=== PATIENT | female | born 1940 | race African-American/Black ===

== ENCOUNTER 2019-07-10 09:38 | Observation (INO) | payer MEDICARE, MEDICAID ==
--- NOTE | 2019-07-10 10:17 | ED ---
GI/ HPI - HPI Summary HPI Summary: This patient is a 79 year old female accompanied by her daughters presenting to [facility] with a chief complaint of left flank pain since last night around 0200. She reports nausea and vomiting as well as umbilical abdominal pain that she feels is secondary to the vomiting. She states what she was vomiting was sour. She rates her pain 9/10 in severity. She states she has not had any history of kidney stones in the past. She states walking and movement does affect her pain. She states she does not have numbness or tingling in her legs related to this problem. She denies blood in stool. Pt also denies any fever, chills, erythema of eyes, sore throat, CP, SOB, cough, dysuria, hematuria, myalgia, edema, rash, or dizziness. escalator attendant was used for this visit. - History of Current Complaint Chief Complaint: EDFlankPain Time Seen by Provider: 07/10/19 09:51 Stated Complaint: ABD PAIN/VOMITING PER PT DAUGHTER Hx Obtained From: Patient, Family/Incendiaries Supervisor, Kiln Cleaner Onset/Duration: Started Hours Ago Timing: Constant Pain Intensity: 9 Location of Pain: Flank, Umbilical - Allergy/Home Medications Allergies/Adverse Reactions: Allergies Allergy/AdvReac Type Severity Reaction Status Date / Time No Known Allergies Allergy Verified 07/10/19 09:44 Home Medications: Home Medications Aspirin 81 mg CHEW TAB* [Aspirin Low Dose TAB*] 81 mg PO DAILY 07/10/19 [ History Confirmed 07/10/19] Ezetimibe TAB* [Zetia TAB*] 10 mg PO DAILY 07/10/19 [History Confirmed 07/10/19] Insulin Degludec/Liraglutide [Xultophy 100/3.6 100-3.6 Unit-mg/ml] 50 units SUBCUT DAILY 07/10/19 [History Confirmed 07/10/19] Insulin Lispro [Humalog Kwikpen] 15 unit SUBCUT TID 07/10/19 [History Confirmed 07/10/19] Lisinopril 40 mg PO DAILY 07/10/19 [History Confirmed 07/10/19] Rosuvastatin (NF) [Crestor (NF)] 20 mg PO BEDTIME 07/10/19 [History Confirmed ] PMH/Surg Hx/FS Hx/Imm Hx Endocrine/Hematology History: Reports: Hx Diabetes - type 2 Denies: Hx Thyroid Disease Cardiovascular History: Reports: Hx Angina, Hx Hypercholesterolemia, Hx Hypertension - W/MEDS, Other Cardiovascular Problems/Disorders - HEART MURMUR, heart a little big Denies: Hx Coronary Artery Disease, Hx Myocardial Infarction, Hx Pacemaker/ ICD, Hx Valvular Heart Disease Respiratory History: Denies: Hx Asthma, Hx Chronic Obstructive Pulmonary Disease (COPD) GI History: Denies: Hx Ulcer History: Denies: Hx Renal Disease Musculoskeletal History: Denies: Hx Rheumatoid Arthritis, Hx Osteoporosis Sensory History: Reports: Hx Contacts or Glasses Denies: Hx Hearing Aid Opthamlomology History: Reports: Hx Contacts or Glasses Neurological History: Denies: Hx Dementia, Hx Seizures Psychiatric History: Denies: Hx Panic Disorder - Cancer History Hx Chemotherapy: No Hx Radiation Therapy: No - Surgical History Surgery Procedure, Year, and Place: HYSTERECTOMY. TUBAL LIGATION. CATARACT SURGERY Hx Anesthesia Reactions: No Infectious Disease History: No Infectious Disease History: Denies: Hx Clostridium Difficile, Hx Hepatitis, Hx Human Immunodeficiency Virus (HIV), Hx of Known/Suspected MRSA, Hx Shingles, Hx Tuberculosis, Traveled Outside the [place] in Last 30 Days - Social History Alcohol Use: None Substance Use Type: Reports: None Smoking Status (MU): Never Smoked Tobacco Review of Systems Negative: Fever, Chills Negative: Erythema Negative: Sore Throat Negative: Chest Pain Negative: Shortness Of Breath, Cough Positive: Abdominal Pain, Vomiting, Nausea, Other - Neg: Hematochezia Positive: flank pain. Negative: dysuria, hematuria Negative: Myalgia, Edema Negative: Rash Neurological: Other - Neg: Dizziness Negative: Paresthesia, Numbness All Other Systems Reviewed And Are Negative: No Physical Exam - Summary Physical Exam Summary: Constitutional: Well-developed, Well-nourished, Alert. (-) Distressed Skin: Warm, Dry HENT: Normocephalic; Atraumatic Eyes: Conjunctiva normal Neck: Musculoskeletal ROM normal neck. (-) JVD, (-) Stridor, (-) Tracheal deviation Cardio: Rhythm regular, rate normal, Heart sounds normal; Intact distal pulses; The pedal pulses are 2+ and symmetric. Radial pulses are 2+ and symmetric. (-) Murmur Pulmonary/Chest wall: Effort normal. (-) Respiratory distress, (-) Wheezes, (-) Rales Abd: Soft, LLQ and left flank tenderness, (-) Distension, (-) Guarding, (-) Rebound Musculoskeletal: (-) Edema Lymph: (-) Cervical adenopathy Neuro: Alert, Oriented x3 Psych: Mood and affect Normal Triage Information Reviewed: Yes Vital Signs On Initial Exam: Initial Vitals Temp Pulse Resp BP Pulse Ox 98.2 F 79 18 199/103 97 07/10/19 09:39 07/10/19 09:39 07/10/19 09:39 07/10/19 09:39 07/10/19 09:39 Vital Signs Reviewed: Yes Procedures - Sedation Patient Received Moderate/Deep Sedation with Procedure: No Diagnostics - Vital Signs Vital Signs Temp Pulse Resp BP Pulse Ox 07/10/19 09:39 98.2 F 79 18 199/103 97 - Laboratory Result Diagrams: 07/10/19 10:18 07/10/19 10:18 Lab Statement: Any lab studies that have been ordered have been reviewed, and results considered in the medical decision making process. - CT Abd/Pel CT Interpretation Completed By: Radiologist Summary of CT Findings: Colonic diverticulosis without findings of accute diverticulitis. Infracecal medially extending appendix measuring up to 0.8 cm diameter while mildly prominent and is without visualized inflammatory change. Helpatosteatosis. Consider ultrasound of urinary bladder to assess for potential mural lesion along the midline anterior wall. ED Provider has reviewed this report. CTA Chest CT Interpretation Completed By: Radiologist Summary of CT Findings: No pulmonary embolus. No aortic dissection or aneurysmal dilatation. ED Provider has reviewed this report. - EKG 1019 Cardiac Rate: NL - 74 BPM EKG Rhythm: Sinus Rhythm Summary of EKG Findings: Mild [address] elevations V1-V3. TWI in V4-V6. No STEMI. ED Physician has reviewed and interpreted this report. 1600 Cardiac Rate: NL - 61 BPM EKG Comparison: No Significant Change - From 1019 Summary of EKG Findings: Mild [address] elevations V1-V3. TWI in V4-V6. No STEMI. ED Physician has reviewed and interpreted this report. Re-Evaluation - Re-Evaluation First Eval Re-Evaluation Time: 15:59 Change: Improved Comment: Pain has resolved. GIGU Course/Dx - Course Course Of Treatment: This patient is a 79 year old female accompanied by her daughters presenting to [facility] with a chief complaint of left flank pain since last night around 0200. CT Abd/Pel reveals Colonic diverticulosis without findings of accute diverticulitis. Infracecal medially extending appendix measuring up to 0.8 cm diameter while mildly prominent and is without visualized inflammatory change. Hepatosteatosis. Consider ultrasound of urinary bladder to assess for potential mural lesion along the midline anterior wall. Labs were unremarkable except Absolute Neuts 8.4 H, Absolute Lymphs 0.9 L, Sodium 134 L, Chloride 99L, Glucose 327 H, Troponin 0.03H both tests, Ur Specific [place] ?1.060 H, Urine Ketones 1+A, Ur Leukocyte Esterase Trace A, Ur Squamous Epith Cells Present A, Urine Glucose 3+ A. Dr. Juárez, Cardiology, stated he would see the patient in the hospital tomorrow morning. Dr. Salgado, Hosptialist, accepted the patient for admission. A plan for admission was discussed with the patient and she was agreeable with this plan. - Diagnoses Provider Diagnoses: Acute electrocardiogram changes, Flank pain - Physician Notifications Discussed Care Of Patient With: Zoran Juárez - Cardiology Time Discussed With Above Provider: 16:05 - Will see in the morning Instructed by Provider To: Admit As Inpatient Discharge ED - Sign-Out/Discharge Documenting (check all that apply): Patient Departure - Admission - Discharge Plan Condition: Stable Disposition: ADMITTED TO [facility] Patient Education Materials: Flank Pain (ED) - Attestation Statements Document Initiated by Scribe: Yes Documenting Scribe: Zhen Ryder Provider For Whom Ernestoibe is Documenting (Include Credential): Angelo Wynn MD Scribe Attestation: IZhen, scribed for Angelo Wynn MD on 07/10/19 at 1637. Status of Scribe Document: Ready
--- OUTSIDE RECORDS SUMMARY | 2019-07-10 10:24 | XMS REPORT | Continuity of Care Document ---
:1940 External Reference #:[id number] Author Name Sung Sierra MD (transmitted by agent of provider Hailey Mcbride) Address [address] [place] [id number] Care Team Providers Name Role Phone Chanell Perez MD - Legal Medicine Care Team Information Multiple Knife Edge Trimmer Operator [phone] Misti Aguilar MD - Surgery Care Team Information Multiple Knife Edge Trimmer Operator [phone] Mukul Spivey MD - Care Team Information Multiple Knife Edge Trimmer Operator [phone] Ophthalmology Opal Galeas MD - Orthopaedic Care Team Information Multiple Knife Edge Trimmer Operator Surgery Lina Holly M.D. - Family Medicine Care Team Information Multiple Knife Edge Trimmer Operator Problems Active Problems Provider Date Type 2 diabetes mellitus Arnaldo Dorantes M.D. Onset: 06/30/2011 Benign essential hypertension Arnaldo Dorantes M.D. Onset: 08/31/2011 Hyperlipidemia Arnaldo Dorantes M.D. Onset: 08/31/2011 Allergic rhinitis due to pollen Arnaldo Dorantes M.D. Onset: 01/18/2012 Type II diabetes mellitus uncontrolled Arnaldo Dorantes M.D. 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 Onset: 11/01/2012 Pneumonia Arnaldo Dorantes M.D. Onset: 12/26/2012 Allergic rhinitis Arnaldo Dorantes M.D. Onset: 12/26/2012 Chest pain Arnaldo Dorantes M.D. Onset: 04/11/2013 Age-related osteoporosis without current Arnaldo Dorantes M.D. Onset: 2016 pathological fracture Gastroesophageal reflux disease Arnaldo Dorantes M.D. Onset: 10/14/2016 Low back pain Arnaldo Dorantes M.D. Onset: 07/01/2017 Cervical disc disorder Arnaldo Dorantes M.D. Onset: 11/09/2017 Mixed hyperlipidemia Arnaldo Dorantes M.D. Onset: 06/23/2018 Vitamin D deficiency Arnaldo Dorantes M.D. Onset: 06/23/2018 Social History Type Date Description Comments Sex Unknown Tobacco Use Start: Unknown Never Smoked Cigarettes ETOH Use Never used alcohol Tobacco Use Start: Unknown Patient has never smoked Recreational Drug Use Denies Drug Use Smoking Status Reviewed: 07/04/19 Patient has never smoked Exercise Type/Frequency Exercises regularly treadmill at the gym 3x/week Allergies, Adverse Reactions, Alerts Active Allergies Reaction Severity Comments Date seasonal 12/07/2011 Invokana vomiting and dizziness 05/06/2017 Medications Active Medications SIG Qnty Indications Ordering Date Provider Xultophy 50 units once 15ml E11.65 Almaraz [facility], 100-3.6Unit-mg/ML daily, mdd 50 MD Grossman Solution Pen-Inject Freestyle [place] Lite 3 times times 100units E11.65 Almaraz Coch, daily dx:e11.9 MD Grossman W/Device Kit Freestyle Lite Test test blood sugar 3 100units E11.65 Almaraz Rigo, Strips times daily and as MD Grossman needed Lancet Device use 3 times daily 100units E11.65 Almaraz Coch, Misc MD Grossman Hydrochlorothiazide 1 by mouth every 90tabs R60.0 Almaraz Rigo, 25mg day MD Grossman Tablets Ezetimibe take 10mg by mouth 90tabs I10 Sung Sierra, 10mg Tablets daily MD Grossman Ergocalciferol one capsule every 14caps E55.9 Almaraz Coch, [id number] week for 3 months MD Grossman Capsules Onetouch Delica Lancing check up to three 1units E11.65 Almaraz Coch, 08/24 Dev times daily. brand 9 [facility] may be adjusted to fit insurance Amlodipine Besylate Take 1 Tablet By 30tabs I10 Lina Holly, 10mg Mouth Every Day 8 Tablets Shingrix 0.5 milliliters 2units E11 [place] [facility] 50mcg/0.5ML intramuscular now Sohailika, 8 Suspension Rec and 2-3 months M.D. later repeat Rosuvastatin Calcium 1 by mouth every 90tabs [place] [facility] 20mg day bed time Pachika, 8 Tablets M.D. Humalog Kwikpen inject 15 units 15ml E11. Sung Sierra, 100Unit/ML under the skin MD Farmer Solution Pen-Inject after each meal, MDD 50 Metoprolol Succinate ER 1 by mouth every 30tabs Z23 Linafuentes ArredondoHolly, 50mg day . 7 Tablets ER 24HR Blood Pressure Monitor check bp daily 1units Z23 [place] Auto Inflate dx:i10 Jayna, 7 [facility] Chuyita Freestyle Insulinx Blood as directed. 1units Gina Glucose Monitoring Chuyita Ricardo 6 System W/Device Kit Lisinopril 1 by mouth every 90tabs Z23 Rosie 40mg Tablets day Chuyita Link 6 Onetouch Ultra Blue test up to four 200units Gina Strips times a day or as Chuyita Ricardo 5 directed Onetouch Ultra 2 check blood sugar 1units Gina W/Device Kit 2 times daily and Chuyita Ricardo 5 prn dx 250.02 Onetouch Ultra Blue test up to two 200units E11. Lina Holly, Strips times a day or as MD Cummings directed dx: e11.65 date of last exam : 01-24-2019 Onetouch Delica Lancets test two times 200units Lina Holly, Fine 30G daily or as needed MD Cummings 30G [facility] dx code: E11.65 BD Pen use 4 times a day 120units E11 Lina Holly, Needle/Mini/Ultrafine/31 5 G X 3/16" 31G X 5 mm Misc BD Pen Needle Mini Use as Directed 100units Ryan Treadwell 31GX3/16"__5mm With Emiliano LangleyDCheri,FACP BD Pen three times a day 100units E11.65 Gina Needle/Mini/Ultrafine/31 Chuyita Ricardo 3 G X 3/16" 31G X 5 mm Misc Ibuprofen as needed Unknown 200mg Capsules 0 History Medications Hydrochlorothiazide 1 by mouth 30caps R60.0 Lina Holly, 01/24/2019 - 12.5mg every day as MD 07/04/2019 Capsules needed for swelling Immunizations CPT Code Status Date Vaccine Reaction Lot # [id number] Given 06/23/2018 Fluzone High Dose No immediate reaction [id number] noted. 13388 Given 09/30/2016 Pneumococcal Conjugate no immediate reaction [id number] Vaccine 13 Valent For noted .. hh Intramuscular Use 21971 Given 05/17/2015 Influenza Virus Vaccine, [id number] Quadrivalent, Split, Preservative Free 98551 Given 05/17/2015 Influenza Virus Vaccine, x7yr2 Quadrivalent, Split, Preservative Free 03083 Given 05/22/2013 Flu Vaccine Split Virus [id number] Preservative Free For Indiv 3Yr Older [id number] Given 06/08/2012 Fluvirin Im 3Yrs And Older [id number] 26451 Given 07/30/2010 Pneumonia Vaccine [id number] 08124 Given 07/30/2010 Influenza Virus 3Yrs & Over [id number] 41109 Given 05/17/2000 Influenza Virus Vaccine, x7yr2 Quadrivalent, Split, Preservative Free [id number] Refused 06/08/2012 Tdap - Tetanus/Diptheria/Acellular Pertussis Vital Signs Date Vital Result Comment 07/04/2019 1:38pm Height 62 inches 5'2" Weight 148.00 lb w/ shoes Heart Rate 59 /min BP Systolic Sitting 200 mmHg BP Diastolic Sitting 79 mmHg BMI (Body Mass Index) 27.1 kg/m2 01/24/2019 3:17pm Height 62 inches 5'2" Weight 146.38 lb Heart Rate 85 /min BP Systolic 138 mmHg BP Diastolic 82 mmHg Body Temperature 97.4 F O2 % BldC Oximetry 96 % BMI (Body Mass Index) 26.8 kg/m2 Results Description No Information Available Procedures Date Code Description Status 06/30/2017 169063579 Bone Mineral Density Test Completed 06/20/2016 823775953 Diabetic Retinal Eye Exam Completed 10/29/2015 43643026 Mammogram Completed 06/20/2015 054374618 Diabetic Retinal Eye Exam Completed 04/17/2014 381820928 Bone Mineral Density Test Completed 04/17/2014 83903877 Mammogram Completed 09/29/2012 686485525 Diabetic Retinal Eye Exam Completed 09/07/2011 18497686 Mammogram Completed 01/16/2011 33687150 Colonoscopy Completed 08/21/2010 14864950 Mammogram Completed Medical Devices Description No Information Available Encounters Type Date Location Provider Dx Diagnosis Office Visit 01/24/2019 [facility] Internal Lina Holly MD I10 Essential ( primary) 3:00p Medicine - Ccmob hypertension R60.0 Localized edema E11.65 Type 2 diabetes mellitus with hyperglycemia Assessments Date Code Description Provider 07/04/2019 E11.65 Type 2 diabetes mellitus with hyperglycemia Sung Sierra MD 07/04/2019 Z79.4 adjunct faculty for medical 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 (current) use of insulin Sung Sierra MD 07/04/2019 E78.5 Hyperlipidemia, unspecified Sung Sierra MD 07/04/2019 I10 Essential (primary) hypertension Sung Sierra MD 01/24/2019 I10 Essential (primary) hypertension Lina Holly MD 01/24/2019 R60.0 Localized edema Lina Holly MD 01/24/2019 E11.65 Type 2 diabetes mellitus with hyperglycemia Lina Holly MD Plan of Treatment Future Appointment(s):10/03/2019 1:20 pm - Sung Sierra MD at [facility]07/04/2019 - Sung Sierra MDE11.65 Type 2 diabetes mellitus with hyperglycemiaNew Medication:Xultophy 100-3.6 Unit-mg/ML - 50 units once daily, mdd 50Freestyle [place] Lite W/Device - 3 times times daily dx:e11.9Freestyle Lite Test - test blood sugar 3 times daily and as neededLancet Device - use 3 times dailyFollow up:SeptemberInstructions:1. Continue Xultophy 50 units every day. 2. Start Humalog 15-18 units with every meal. 3. Please check your blood glucose before every meal. 4. Check fasting blood tests prior to your appointment with Dr. Holly. 5. Return in 3 months for a follow-up visit.Z79.4 snf (current) use of sfsibopL28.5 Hyperlipidemia, [id number] Essential (primary) hypertension Functional Status Description No Information Available Mental Status Description No Information Available Referrals Description No Information Available
[2019-07-10 10:30] LABS: ABS Basophils 0.1 10^3/ul (0-0.2); ABS Lymphocytes 0.9 10^3/ul (1.0-4.8); ABS Monocytes 0.2 10^3/ul (0-0.8); ABS Neutrophils 8.4 10^3/ul (1.5-7.7); Hematocrit 42 % (35-47); Lymphocyte % 9.5 %; Mean Corpuscular HGB Conc 33 g/dL (31-36); Mean Corpuscular Hemoglobin 29 pg (27-31); Mean Corpuscular Volume 87 fL (80-97); Mean Platelet Volume 8.7 fL (7.4-10.4); Nucleated Red Blood Cells % 0.1; Platelet Count 182 10^3/uL (150-450); Red Blood Count 4.87 10^6 /uL (3.70-4.87); Red Cell Distribution Width 13 % (10-15); White Blood Count 9.5 10^3/uL (3.5-10.8)
[2019-07-10] MEDS ORDERED: Morphine 4 MG/ML VIAL (1 ml) 4 MG/ML VIAL IV ONE (10:45)
[2019-07-10] MEDS ORDERED: Ondansetron INJ* 2 MG/ML VIAL IV ONE (10:45)
[2019-07-10 10:54] LABS: Troponin I 0.03 ng/mL (<0.03)
[2019-07-10 11:17] LABS: Albumin 4.2 g/dL (3.2-5.2); Calcium 9.2 mg/dL (8.6-10.3); Potassium 3.6 mmol/L (3.5-5.0); Total Bilirubin 0.7 mg/dL (0.2-1.0)
[2019-07-10 11:23] LABS: Albumin/Globulin Ratio 1.4 (1-3); BUN/Creatinine Ratio 16.7 (8-20); C Reactive Protein 2.07 mg/L (<8.01); EGFR African American 94.8 (>60); EGFR Non-African American 78.3 (>60); Globulin 3.1 g/dL (2-4); Total Protein 7.3 g/dL (6.4-8.9)
[2019-07-10] MEDS ORDERED: Iodixanol* (CONTRAST) 320 MG/ML 100 ML SDV IV ONE ×2 (11:46→13:26)
[2019-07-10 15:09] LABS: Urine Appearance Clear; Urine Bilirubin Negative (Negative); Urine Blood Negative (Negative); Urine Color Yellow; Urine Glucose 3+(>=500 mg/dL) (Negative); Urine Ketones 1+ (Negative); Urine Nitrite Negative (Negative); Urine Protein Negative (Negative); Urine Specific Gravity > 1.060 (1.010-1.030); Urine Urobilinogen Negative (Negative)
[2019-07-10 15:12] LABS: Urine Bacteria Absent (Absent); Urine Red Blood Cell Trace(0-2/hpf) (Absent); Urine Squamous Epithelial Cell Present (Absent); Urine White Blood Cell Trace(0-5/hpf) (Absent)
[2019-07-10 15:29] LABS: Troponin I 0.03 ng/mL (<0.03)
[2019-07-10] MEDS ORDERED: Ondansetron INJ* 2 MG/ML VIAL IV PRN (17:39)
[2019-07-10] MEDS ORDERED: NS 0.9% 1000 ML** 1,000 ML IV SCH (17:45)
[2019-07-10 18:41] LABS: Troponin I 0.03 ng/mL (<0.03)
--- NOTE | 2019-07-10 19:24 | HP ---
CC: Dr. Lina Holly; Dr. Sung Sierra * HISTORY AND PHYSICAL: DATE OF ADMISSION: 07/10/19 PRIMARY CARE PROVIDER: Dr. Lina Holly. BANANA RIPENING ROOM SUPERVISOR: Dr. Sung Sierra. ATTENDING PHYSICIAN: Dr. Charity Salgado * (dictated by VIN Francisco). CHIEF COMPLAINT: Left flank pain, headache, nausea, and vomiting. HISTORY OF PRESENT ILLNESS: Ms. Ozuna is a 79-year-old female with past medical history of cardiomyopathy; ejection fraction 45%, hypertension, hyperlipidemia, and diabetes mellitus type 2 who presented to the ER today with complaints of left flank pain, headache, nausea, and vomiting. The patient is accompanied by 2 of her daughters at bedside who are able to translate as the patient is Ivorian-speaking. She reports that she woke up at 0200 with complaints of left flank pain and nausea as well as headache. She then started to vomit at approximately 0300 until 0600; she vomited x3. She states she was at a [employer] restaurant last night and has been unable to tolerate intake since then, although she states she is currently hungry. She has no associated diarrhea and her last bowel movement was approximately 2100 last night and was formed. She presented to the ER today and was given IV morphine and Zofran, which relieved her nausea, headache, and left flank pain. She does have a small amount of pain in the left flank that she rates at 2/10 currently. She is not terribly active at home. She notes that she can walk 3 blocks without fatigue, but has not walked this distance recently. She is able to tolerate stairs, but again does not use stairs frequently. She denies chest pain, diaphoresis, or shortness of breath. In the ER, the patient received a full workup including laboratory data, which reveals a glucose of 327 and troponin of 0.03 x2. She was noted to have a high specific gravity in urinalysis as well as 1+ ketones, trace LE. She received a CTA of the chest, which was negative for pulmonary embolism, aortic dissection, or aneurysmal dilation. CT of the abdomen and pelvis revealed diverticulosis without acute diverticulitis. Two EKGs were performed. The first one shows normal sinus rhythm with a rate of [address] depression in lead II and mild ST elevation in V1, V2, V3. EKG #2 reveals normal sinus rhythm with a rate of 61, ST depression in II; V5 to V6, mild ST elevation in V1; V2; V3. HEART score is 6 points. The hospitalist team was asked to evaluate the patient for admission. PAST MEDICAL HISTORY: 1. Cardiomyopathy, reduced ejection fraction, last known ejection fraction 45%. 2. Hypertension. 3. Hyperlipidemia. 4. Diabetes mellitus type 2. PAST SURGICAL HISTORY: Hysterectomy, tubal ligation, cataracts. HOME MEDICATIONS: 1. Aspirin 81 mg p.o. daily. 2. Ezetimibe 10 mg p.o. daily. 3. Insulin degludec/liraglutide 50 units subcu daily. 4. Insulin lispro 15 units subcu t.i.d. 5. Lisinopril 40 mg p.o. daily. 6. Metoprolol succinate 50 mg p.o. daily. 7. Rosuvastatin 20 mg p.o. at bedtime. ALLERGIES: No known drug allergies. FAMILY HISTORY: Father had heart disease. Mother had brain tumor. The patient has children with CVA and diabetes mellitus. SOCIAL HISTORY: The patient denies current or former use of tobacco. She does not drink alcohol and she does not use illicit drugs. 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 She lives with her son's ex-. She is not . She has 3 daughters and 4 sons. In the event that she is unable to make her own medical decisions, she has appointed her daughter, Donna Joiner, or any of her other children to be her surrogate decision makers. REVIEW OF SYSTEMS: A 14-point review of systems has been performed and all the pertinent positives and negatives are in the HPI. All other systems are negative. PHYSICAL EXAMINATION GENERAL: Ms. Ozuna is a well-developed, well-nourished, average-weight, older Ivorian-speaking female who is sitting up in bed. She appears to be in no acute distress. She is pleasant and cooperative. Conversation has had via the patient's daughter who is translating. HEENT: PERRL. EOMI. Nonicteric sclerae. Hearing is grossly intact. Oral mucous membranes are moist. There are no lesions. The pharynx is clear. The tongue is at midline. Palate elevates symmetrically. PULMONARY: Symmetrical chest expansion without the use of accessory muscles. Clear to auscultation bilaterally without rhonchi, wheezes, or rubs. Mildly decreased breath sounds throughout. No digital clubbing or cyanosis. CARDIOVASCULAR: Regular rate and rhythm with S1, S2 present without murmurs, rubs, clicks, or gallops. There is no JVD. There is no peripheral edema. Radial and pedal pulses are palpable. ABDOMEN: Flat. Bowel sounds in all quadrants. Soft. There is tenderness to the left flank without CVA tenderness. MUSCULOSKELETAL: Full range of motion without pain or deformities. NEURO: The patient is awake. She is alert and oriented x3 with cranial nerves II through XII grossly intact. Muscle strength 5/5 bilaterally in the upper and lower extremities. Muscle strength is equal. Life Skills Coordinator Volunteer strength is equal. DIAGNOSTIC STUDIES/LAB DATA: CBC without gross abnormality. D-dimer less than 200. Glucose 327. Troponin 0.03, 0.03. Abdomen and pelvis CT, impression: Colonic diverticulosis without findings of acute diverticulitis, infracecal medially extending appendix measures up to 0.8 cm diameter while mildly prominent and is without visualized inflammatory changes, hepatosteatosis. Consider ultrasound of the urinary bladder to assess for potential mural lesions along the midline anterior wall. CTA of the chest, impression: No pulmonary embolus. No aortic dissection or aneurysmal dilatation. ASSESSMENT AND PLAN: Ms. Ozuna is a 79-year-old Ivorian-speaking female with a past medical history of cardiomyopathy with ejection fraction of 45%, diabetes mellitus; insulin dependent, hypertension, and hyperlipidemia who presented to the ER today with complaints of left flank pain and was found to have an elevated troponin, ST changes on EKG. The hospitalist team was asked to evaluate the patient for admission. The patient will be admitted observation for: 1. Chest pain, rule out acute coronary syndrome. The patient has mild ST elevations and some ST depressions on EKG as described above. Troponins are 0.03 x2. Cardiology was consulted and will see the patient in the morning. She will be admitted to tele floor. We will continue to trend troponins. She will receive an EKG in the morning. She will continue aspirin 81 mg. Risk stratification will be performed with hemoglobin A1c and lipid panel. Nuclear medicine stress test has been ordered for the morning. An echocardiogram has been ordered as well. 2. Diabetes mellitus. The patient is on insulin degludec/liraglutide 50 units subcu daily. This will be reduced to 40 units subcu daily. She will be placed on lispro sliding scale. 3. Cardiomyopathy. Continue metoprolol, lisinopril. 4. Hypertension. Continue metoprolol, lisinopril. 5. Hyperlipidemia. Continue rosuvastatin, ezetimibe. Lipid panel has been ordered for the morning. 6. DVT prophylaxis. The patient scores 4 according to the DVT Risk Assessment , placing her at high risk. She will be started on Lovenox subcu. 7. Code status. Full code. TIME SPENT: Approximately 60 minutes were spent on this admission, greater than half that time was spent [id number] with the patient and her family members obtaining history, performing physical, and reviewing the plan of care. The case has been discussed with my attending, Dr. Salgado, who is in agreement with the plan of care. VIN GONZALEZ [id number]/CPS #: [id number] MAREK
[2019-07-10] MEDS: hydrALAZINE IV* 20 MG/ML VIAL IV SLOW PU PRN (19:31)
[2019-07-10] MEDS: Acetaminophen TAB* 325 MG PO PRN (19:37)
[2019-07-10] MEDS: Enoxaparin(*) 40 MG/0.4 ML SYR SUBCUT SCH (19:37)
[2019-07-10] MEDS: Atorvastatin* 40 MG TAB PO SCH (20:37)
[2019-07-11] MEDS: Acetaminophen TAB* 325 MG PO PRN ×2 (05:24→17:38)
[2019-07-11] MEDS: Ezetimibe TAB* 10 MG PO SCH (07:56)
[2019-07-11] MEDS: Aspirin 81 mg CHEW TAB* 81 MG TAB.CHEW PO SCH (07:56)
[2019-07-11] MEDS: Lisinopril TAB* 10 MG PO SCH (08:01)
[2019-07-11] MEDS ORDERED: [UNRECOGNIZED DRUG - OTHER] SUBCUT SCH (09:00)
[2019-07-11] MEDS ORDERED: LIRAGLUTIDE SUBCUT SCH (09:00)
[2019-07-11] MEDS ORDERED: Influenza VAC *QUAD* 2019-20* 0.5 ML SYRINGE IM ONE (09:00)
[2019-07-11] MEDS ORDERED: INSULIN DEGLUDEC SUBCUT SCH (09:00)
[2019-07-11] MEDS ORDERED: Metoprolol Succinate XL TAB* 50 MG PO SCH (09:00)
[2019-07-11 09:25] LABS: ABS Eosinophils 0.1 10^3/ul (0-0.6); ABS Lymphocytes 1.7 10^3/ul (1.0-4.8); ABS Monocytes 0.3 10^3/ul (0-0.8); ABS Neutrophils 5.2 10^3/ul (1.5-7.7); Eosinophil % 0.9 %; Hematocrit 39 % (35-47); Hemoglobin 13.2 g/dL (12.0-16.0); Lymphocyte % 23.8 %; Mean Corpuscular HGB Conc 34 g/dL (31-36); Mean Corpuscular Hemoglobin 29 pg (27-31); Mean Corpuscular Volume 86 fL (80-97); Mean Platelet Volume 8.7 fL (7.4-10.4); Platelet Count 174 10^3/uL (150-450); Red Cell Distribution Width 13 % (10-15); White Blood Count 7.3 10^3/uL (3.5-10.8)
[2019-07-11] MEDS: hydrALAZINE IV* 20 MG/ML VIAL IV SLOW PU PRN (09:30)
[2019-07-11 09:42] LABS: BUN/Creatinine Ratio 15.2 (8-20); Calcium 8.6 mg/dL (8.6-10.3); EGFR African American 104.8 (>60); EGFR Non-African American 86.6 (>60); HDL Cholesterol 40.3 mg/dL; Potassium 3.4 mmol/L (3.5-5.0)
--- NOTE | 2019-07-11 10:26 | ECHO ---
*[facility]* [place] [address] Fax #: [phone] Transthoracic Echocardiogram Patient: Shirley Ozuna : 1940 Study Date: 07/11/2019 Age: 79 Gender: F HR: 65 bpm Height: 64 in /162.6 cm BSA: 1.71 m^2 Weight: 145.7 lb /66.2 kg BMI: 25.1 kg/m^2 *Forestry Farm Laborer: * Geneva Nieves RDCS RN *Referring Physician: * Brandy BaezReading Physician: * Zoran Juárez MD Indications: Abnormal EKG. History: PMH: Cardiomyopathy. Risk factors: Hypertension. Diabetes mellitus. Dyslipidemia. Conclusions Summary: - Left ventricle: Systolic function is at the lower limits of normal. The estimated ejection fraction is 50-55%. Wall motion is normal; there are no regional wall motion abnormalities. - Right ventricle: Systolic function is normal. - Mitral valve: There is trace to mild regurgitation. - Aortic valve: There is no evidence of stenosis. - Tricuspid valve: There is trace regurgitation. - Ascending aorta: The ascending aorta is mildly dilated at 3.7 cm. - Pulmonary arteries: Systolic pressure is within the normal range, estimated to be 31 mm Hg. - Compared to study of 10/14/18, there is no change. Study data: Transthoracic echocardiogram. Procedure: Transthoracic echocardiography was performed. Image quality was fair. Complete 2D, spectral Doppler, and color flow Doppler. Location: Bedside. Patient status: Observation. Patient room number: 434. Rhythm: Normal sinus rhythm with PVC's. Findings Left ventricle: The cavity size is normal. Wall thickness is mildly increased. Systolic function is at the lower limits of normal. The estimated ejection fraction is 50-55%. Wall motion is normal; there are no regional wall motion abnormalities. There is no consistent Doppler evidence of clinically significant diastolic dysfunction. Right ventricle: The cavity size is slightly dilated. Systolic function is normal. Left atrium: The atrium is at the upper limits of normal in size. Right atrium: The atrium is slightly dilated. Mitral valve: The mitral valve annulus appears mildly calcified. The leaflets are mildly thickened. There is no evidence of stenosis. There is trace to mild regurgitation. Aortic valve: The annulus is mildly calcified. The valve is trileaflet. The leaflets are mildly thickened. There is no evidence of stenosis. There is no regurgitation. Tricuspid valve: The valve is structurally normal. There is no evidence of stenosis. There is trace regurgitation. Pulmonic valve: The valve is structurally normal. There is no evidence of stenosis. There is mild to moderate regurgitation. Aorta: Ascending aorta: The ascending aorta is mildly dilated at 3.7 cm. Aortic arch: The aortic arch is not dilated. The aortic root appears normal. Pericardium: There is no pericardial effusion. Pulmonary arteries: The main pulmonary artery is normal-sized. Systolic pressure is within the normal range, estimated to be 31 mm Hg. Systemic veins: Inferior vena cava: The vessel is normal in size. There is (>= 50%) respiratory change in the IVC dimension. Measurements Left ventricle Value Ref Aortic valve continued Value Ref VIET, LAX 4.7 cm 3.8 - 5.2 Viky diam/bsa, ED 1.1 cm/m^2 ---- ESD, LAX 3.5 cm 2.2 - 3.5 Peak v, S 1.55 m/sec ---- FS, LAX (L) 26 % 27 - 45 VTI, S 33.4 cm ---- PW, ED (H) 1.2 cm 0.6 - 0.9 Mean grad, S 6.0 mm Hg ---- IVS/PW, ED 0.98 Peak grad, S 10.0 mm Hg ---- E', lat viky, TDI (L) 4.5 cm/sec >=10.0 LVOT/AV, VTI ratio 0.81 ---- E/e', lat viky, 18 TDI Mitral valve Value Ref E', med viky, TDI (L) 3.8 cm/sec >=7.0 Peak E 0.8 m/sec ---- E/e', med viky, 21 Peak A 1.2 m/sec --- - TDI Decel time 264 ms ---- E', avg, TDI 4.2 cm/sec Peak grad, D 2.6 mm Hg --- - E/e', avg, TDI (H) 19 <=14 Peak E/A ratio 0.7 ---- LVOT Value Ref Pulmonic valve Value Ref Peak sai, S 1.17 m/sec Peak v, S 1.04 m/sec ---- VTI, S 27.0 cm Peak grad, S 4.0 mm Hg ---- Peak grad, S 5 mm Hg Mean grad, S 3 mm Hg Tricuspid valve Value Ref Peak RV-RA grad, S 28 mm Hg ---- Ventricular septum Value Ref Max TR sai 2.64 m/sec ---- IVS, ED (H) 1.2 cm 0.6 - 0.9 Aortic root Value Ref Right ventricle Value Ref Root diam 3.1 cm <3.9 VIET, LAX 3.5 cm VIET minor ax, A4C (H) 3.7 cm 1.9 - 3.5 Ascending aorta Value Ref mid AAo AP diam, S 3.7 cm ---- Pressure, S 31 mm Hg Aortic arch Value Ref Left atrium Value Ref Arch diam 3.0 cm ---- AP dim, ES (H) 4.10 cm 2.70 - 3.80 Decending aorta Value Ref ML dim, A4C 4.3 cm Kate peak sai 0.5 m/sec ---- SI dim, A4C 5.7 cm Vol/bsa, ES, 1-p 34 ml/m^2 11 - 40 Pulmonary artery Value Ref A4C Pressure, S 27.0 mm Hg ---- Vol/bsa, ES, A/L 34 ml/m^2 16 - 34 Inferior vena cava Value Ref Right atrium Value Ref Diam 1.3 cm ---- ML dim, ES, A4C 4.1 cm 2.6 - 4.4 SI dim, ES, A4C (H) 5.4 cm 3.4 - 5.3 Estimated RAP 3 mm Hg Aortic valve Value Ref Viky diam, ED 1.9 cm Legend: (L) and (H) benjamin values outside specified reference range. Prepared and electronically signed by Zoran Juárez MD 07/11/2019 10:25
--- NOTE | 2019-07-11 15:19 | PN ---
Subjective Date of Service: 07/11/19 Interval History: HOSPITALIST PROGRESS NOTE Patient seen and examined at bedside. Care reviewed and d/w Hussein Huntley RN. She c/o of a mild diffuse headache. Abdominal pain is resolved, denies N/V, and feels hungry. No diarrhea. Family History: Unchanged from Admission Social History: Unchanged from Admission Past Medical History: Unchanged from Admission Objective Active Medications: Acetaminophen (Tylenol Tab*) 650 mg PO Q4H PRN PRN Reason: mild to moderate pain Last Admin: 07/11/19 05:24 Dose: 650 mg Aspirin (Aspirin 81 Mg Chew Tab*) 81 mg PO DAILY [facility] Last Admin: 07/11/19 07:56 Dose: 81 mg Atorvastatin Calcium (Lipitor*) 40 mg PO BEDTIME [facility] Last Admin: 07/10/19 20:37 Dose: 40 mg Ezetimibe (Zetia Tab*) 10 mg PO DAILY [facility] Last Admin: 07/11/19 07:56 Dose: 10 mg Enoxaparin Sodium (Lovenox(*)) 40 mg SUBCUT Q24H [facility] Last Admin: 07/10/19 19:37 Dose: 40 mg Hydralazine HCl (Apresoline Iv*) 5 mg IV SLOW PU Q6H PRN PRN Reason: SBP > 160 Last Admin: 07/11/19 09:30 Dose: 5 mg Lisinopril (Prinivil Tab*) 40 mg PO DAILY [facility] Last Admin: 07/11/19 08:01 Dose: 40 mg Non-Formulary Medication (Insulin Degludec/Liraglutide [Xultophy 100 Unit-3.6mg/ Ml Pen]) 20 units SUBCUT DAILY [facility] Ondansetron HCl (Zofran Inj*) 4 mg IV Q4H PRN PRN Reason: NAUSEA/VOMITING Vital Signs - 8 hr 07/11/19 07/11/19 07/11/19 07:15 07:45 08:45 Temperature 98.4 F Pulse Rate 67 Respiratory 20 Rate Blood Pressure 187/74 192/78 190/80 (mmHg) O2 Sat by Pulse 96 Oximetry 07/11/19 07/11/19 10:29 11:15 Temperature 98.6 F Pulse Rate 55 Respiratory 20 Rate Blood Pressure 158/72 145/59 (mmHg) O2 Sat by Pulse 100 Oximetry Oxygen Devices in Use Now: None Appearance: Pleasant elderly lady lying in bed in NAD Eyes: No Scleral Icterus Ears/Nose/Mouth/Throat: Mucous Membranes Moist Neck: Trachea Midline Respiratory: Symmetrical Chest Expansion and Respiratory Effort, Clear to Auscultation Cardiovascular: NL Sounds; No Murmurs; No JVD, RRR Abdominal: - - Soft, NT, ND, BS+ and mildly hyperactive Neurological: Alert and Oriented x 3, NL Muscle Strength and Tone Result Diagrams: 07/11/19 09:17 07/11/19 09:17 Assess/Plan/Problems-Billing Assessment: Mrs Ozuna is a 79yo F with PMH of HTN, HLD, type 2 DM, who presented to ED with c/o flank pain, N/V likely secondary to gastroenteritis, but also found to have EKG changes. - Patient Problems (1) Gastroenteritis Comment: - Patient ate at a [employer] restaurant prior to start of N/V. - Continue supportive care. (2) Chest pain Comment: - Suspect GI in nature with N/V. - Echo showed EF 50-55% with no wall motion abnormalities. - Awaiting stress test. - Continue Aspirin, Atorvastatin, Lisinopril. (3) DVT prophylaxis Comment: - Lovenox. (4) Full code status Status and Disposition: OBV. Family updated at bedside.
[2019-07-11] MEDS: Enoxaparin(*) 40 MG/0.4 ML SYR SUBCUT SCH (17:38)
[2019-07-11] MEDS: Atorvastatin* 40 MG TAB PO SCH (20:36)
[2019-07-12] MEDS: Lisinopril TAB* 10 MG PO SCH (08:42)
[2019-07-12] MEDS: Ezetimibe TAB* 10 MG PO SCH (08:46)
[2019-07-12] MEDS: Aspirin 81 mg CHEW TAB* 81 MG TAB.CHEW PO SCH (08:47)
[2019-07-12] MEDS ORDERED: [UNRECOGNIZED DRUG - OTHER] SUBCUT SCH (09:00)
[2019-07-12] MEDS ORDERED: INSULIN DEGLUDEC SUBCUT SCH (09:00)
[2019-07-12] MEDS ORDERED: LIRAGLUTIDE SUBCUT SCH (09:00)
[2019-07-12] MEDS ORDERED: Regadenoson* 0.4 MG/5 ML SYRINGE ONE (09:02)
[2019-07-12] MEDS ORDERED: Aminophylline IV* 25 MG/ML 10 ML VIAL ONE (09:02)
[2019-07-12 12:32] VITALS: BP 157/53
--- NOTE | 2019-07-12 17:14 | PN ---
Cardiology Progress Note Date of Service: 07/12/19 - CC: N/V, borderline elevation trops PRELIM REPORT, CONSULT TO BE DICTATED. Pt ate maori takeout to N/V. Trops up: 0.03 x 3. Stress test reported as intermediate risk with EF 48%, no ischemia. No CP No exercise induced symtoms. Feels well now. CAD risks of FHx, glucose, HTN, chol. Home Medications Medication Instructions Recorded Confirmed Type Metoprolol Succinate XL TAB* 50 mg PO DAILY 07/14/16 07/10/19 History [Toprol XL TAB*] Aspirin 81 mg CHEW TAB* 81 mg PO DAILY 07/10/19 07/10/19 History Ezetimibe TAB* [Zetia TAB*] 10 mg PO DAILY 07/10/19 07/10/19 History Insulin Degludec/Liraglutide 50 units SUBCUT DAILY 07/10/19 07/10/19 History [Xultophy 100 Unit-3.6MG/ml Pen] Insulin Lispro [Humalog Kwikpen 15 unit SUBCUT TID 07/10/19 07/10/19 History U-100] Lisinopril 40 mg PO DAILY 07/10/19 07/10/19 History Rosuvastatin (NF) [Crestor (NF)] 20 mg PO BEDTIME 07/10/19 07/10/19 History Vital Signs - 12 hr Temp Pulse Resp BP Pulse Ox 07/12/19 08:00 20 07/12/19 07:25 98.2 F 64 19 157/53 93 Laboratory Results WBC 7.3 10^3/uL (3.5-10.8) 07/11/19 09:17 RBC 4.50 10^6 /uL (3.70-4.87) 07/11/19 09:17 Hgb 13.2 g/dL (12.0-16.0) 07/11/19 09:17 Hct 39 % (35-47) 07/11/19 09:17 MCV 86 fL (80-97) 07/11/19 09:17 MCH 29 pg (27-31) 07/11/19 09:17 MCHC 34 g/dL (31-36) 07/11/19 09:17 RDW 13 % (10-15) 07/11/19 09:17 Plt Count 174 10^3/uL (150-450) 07/11/19 09:17 MPV 8.7 fL (7.4-10.4) 07/11/19 09:17 Neut % (Auto) 70.3 % 07/11/19 09:17 Lymph % (Auto) 23.8 % 07/11/19 09:17 [place] % (Auto) 4.4 % 07/11/19 09:17 Eos % (Auto) 0.9 % 07/11/19 09:17 Baso % (Auto) 0.6 % 07/11/19 09:17 Absolute Neuts (auto) 5.2 10^3/ul (1.5-7.7) 07/11/19 09:17 Absolute Lymphs (auto) 1.7 10^3/ul (1.0-4.8) 07/11/19 09:17 Absolute Monos (auto) 0.3 10^3/ul (0-0.8) 07/11/19 09:17 Absolute Eos (auto) 0.1 10^3/ul (0-0.6) 07/11/19 09:17 Absolute Basos (auto) 0.0 10^3/ul (0-0.2) 07/11/19 09:17 Absolute Nucleated RBC 0.0 10^3/ul 07/11/19 09:17 Nucleated RBC % 0.0 07/11/19 09:17 D-Dimer, Quantitative < 200 ng/mL (Less Than 230) 07/10/19 13:58 Sodium 136 mmol/L (135-145) 07/11/19 09:17 Potassium 3.4 mmol/L (3.5-5.0) L 07/11/19 09:17 Chloride 103 mmol/L (101-111) 07/11/19 09:17 Carbon Dioxide 27 mmol/L (22-32) 07/11/19 09:17 Anion Gap 6 mmol/L (2-11) 07/11/19 09:17 BUN 10 mg/dL (6-24) 07/11/19 09:17 Creatinine 0.66 mg/dL (0.51-0.95) 07/11/19 09:17 Est GFR ( Amer) 104.8 (>60) 07/11/19 09:17 Est GFR (Non-Af Amer) 86.6 (>60) 07/11/19 09:17 BUN/Creatinine Ratio 15.2 (8-20) 07/11/19 09:17 Glucose 210 mg/dL (70-100) H 07/11/19 09:17 POC Glucose (mg/dL) 131 mg/dL (70-100) H 07/12/19 11:55 Hemoglobin A1c 9.6 % (4.0-5.6) H 07/10/19 10:18 Lactic Acid 1.6 mmol/L (0.5-2.0) 07/10/19 14:54 Calcium 8.6 mg/dL (8.6-10.3) 07/11/19 09:17 Total Bilirubin 0.70 mg/dL (0.2-1.0) 07/10/19 10:18 AST 18 U/L (13-39) 07/10/19 10:18 ALT 19 U/L (7-52) 07/10/19 10:18 Alkaline Phosphatase 91 U/L (34-104) 07/10/19 10:18 Troponin I 0.03 ng/mL (<0.03) H* 07/10/19 18:03 C-Reactive Protein 2.07 mg/L (<8.01) 07/10/19 10:18 Total Protein 7.3 g/dL (6.4-8.9) 07/10/19 10:18 Albumin 4.2 g/dL (3.2-5.2) 07/10/19 10:18 Globulin 3.1 g/dL (2-4) 07/10/19 10:18 Albumin/Globulin Ratio 1.4 (1-3) 07/10/19 10:18 Triglycerides 122 mg/dL 07/11/19 09:17 Cholesterol 93 mg/dL 07/11/19 09:17 LDL Cholesterol 28 mg/dL 07/11/19 09:17 HDL Cholesterol 40.3 mg/dL 07/11/19 09:17 Lipase 25 U/L (11.0-82.0) 07/10/19 10:18 Urine Color Yellow 07/10/19 14:45 Urine Appearance Clear 07/10/19 14:45 Urine pH 6.0 (5-9) 07/10/19 14:45 Ur Specific [place] > 1.060 (1.010-1.030) H 07/10/19 14:45 Urine Protein Negative (Negative) 07/10/19 14:45 Urine Ketones 1+ (Negative) A 07/10/19 14:45 Urine Blood Negative (Negative) 07/10/19 14:45 Urine Nitrate Negative (Negative) 07/10/19 14:45 Urine Bilirubin Negative (Negative) 07/10/19 14:45 Urine Urobilinogen Negative (Negative) 07/10/19 14:45 Ur Leukocyte Esterase Trace (Negative) A 07/10/19 14:45 Urine WBC (Auto) Trace(0-5/hpf) (Absent) 07/10/19 14:45 Urine RBC (Auto) Trace(0-2/hpf) (Absent) 07/10/19 14:45 Ur Squamous Epith Cells Present (Absent) A 07/10/19 14:45 Urine Bacteria Absent (Absent) 07/10/19 14:45 Urine Glucose 3+(>=500 mg/dl) (Negative) A 07/10/19 14:45 *[facility]* [place] [address] Fax #: [phone] Transthoracic Echocardiogram Patient: Nikolay Ozuna : 1940 Study Date: 07/11/2019 Age: 79 Gender: F HR: 65 bpm Height: 64 in /162.6 cm BSA: 1.71 m^2 Weight: 145.7 lb /66.2 kg BMI: 25.1 kg/m^2 *Economics Teacher: * Geneva Nieves RDCS RN *Referring Physician: * Brandy Baez *Reading Physician: * Zoran Juárez MD Indications: Abnormal EKG. History: PMH: Cardiomyopathy. Risk factors: Hypertension. Diabetes mellitus. Dyslipidemia. Conclusions Summary: - Left ventricle: Systolic function is at the lower limits of normal. The estimated ejection fraction is 50-55%. Wall motion is normal; there are no regional wall motion abnormalities. - Right ventricle: Systolic function is normal. - Mitral valve: There is trace to mild regurgitation. - Aortic valve: There is no evidence of stenosis. - Tricuspid valve: There is trace regurgitation. - Ascending aorta: The ascending aorta is mildly dilated at 3.7 cm. - Pulmonary arteries: Systolic pressure is within the normal range, estimated to be 31 mm Hg. - Compared to study of 10/14/18, there is no change. Patient Name: NIKOLAY OZUNA Medical Record#: [id number] Ordering Physician: Brandy BANUELOS Acct.#: [id number] : 1940 Age: 79 Sex: F Location: [address] [place] [address] - MEDICAL/TELEMETRY Exam Date: 07/12/19 ADM Status: ADM Veena Order Information: NUCLEAR CARDIAC STRESS TEST Accession Number: [id number] CPT: 51084 INDICATION: Chest pain. COMPARISON: Comparison is made with a prior study from August 05, 2016. Technique: A stress myocardial perfusion study was performed on July 12, 2019. Under the direction of Dr. Shah, the patient was given intervenous injection of Lexiscan. Subsequently the patient was given intravenous injection of 24.9 mCi of technetium 99m tetrofosmin and the heart was imaged in multiple projections. A resting study was performed on July 11, 2019. The patient was given an intravenous injection of 25.1 mCi of technetium 99m tetrofosmin and the heart was imaged in multiple projections. Images were reconstructed in the axial, sagittal and coronal planes as well as in a 3-D format. FINDINGS: There appears be mild diffuse hypokinesis which is most prominent in the septum. The left ventricular ejection fraction is calculated to be 49% which is decreased from the prior study. No focal myocardial perfusion defects are seen after pharmacologic stress or rest. The transient ischemic dilatation ratio is 0.8 which is within normal limits. IMPRESSION: 1. NO SPECIFIC EVIDENCE FOR INFARCT OR ISCHEMIA. 2. SLIGHTLY DECREASED LEFT VENTRICULAR EJECTION FRACTION WHICH IS A NEW FINDING FROM THE PRIOR STUDY. ASSESSMENT: Intermediate risk. Based on imaging criteria from ACC/AHA 2002 Guideline Update for the Management of Patients With Chronic Stable Angina Table 23. Noninvasive Risk Stratification. <Electronically signed by Shin Conway MD in OV> 07/12/19 1149 Dictated By: Shin Conway MD Dictated Date/Time: 07/12/19 1141 Transcribed Date/Time: 07/12/19 1141 ECG's this admission: NSR, newly inverted T waves inferior leads and lateral leads. A/P Probable food poisoning to n/v. Elevated troponins, low and stable, possible cross reaction. No inducable ischemia on nuclear study. Normal EF/wall motion on echo. Plan: OK to go home w/o additional cardiac testing. Recommend additional BP control, OK to f/u with primary MD Continue with aggressive CAD risk factor control: Lipids, DM, BP, lifestyle. Consider exercise stress test in the future (pt had chemical stress test here) with imaging if any anginal symptoms recur. F/u with primary MD and if desired out patient cardiology evaluation.
--- NOTE | 2019-07-13 20:32 | DS ---
CC: Dr. Holly; Dr. Sung Sierra, grinder operator automatic; Dr. Rosana Wilhelm, consulting vp analysis.* DISCHARGE SUMMARY: DATE OF ADMISSION: 07/10/19 DATE OF DISCHARGE: 07/12/19 PRIMARY CARE PHYSICIAN: Lina Holly MD. DISCHARGE DIAGNOSES: 1. Left-sided flank pain, nausea, and vomiting; acute coronary syndrome, ruled out; most likely secondary to gastroenteritis. 2. Incidental finding of potential mural lesion in the bladder. SECONDARY DIAGNOSES: 1. Hypertension. 2. Hyperlipidemia. 3. Type 2 diabetes. PAST SURGICAL HISTORY: 1. Status post hysterectomy. 2. Status post tubal ligation. 3. Status post cataract surgery. MEDICATION LIST: 1. Aspirin 81 mg p.o. daily. 2. Ezetimibe 10 mg p.o. daily. 3. Insulin degludec/liraglutide 50 units subcutaneously daily. 4. Lispro 15 units subcutaneously t.i.d. 5. Lisinopril 40 mg p.o. daily. 6. Metoprolol succinate 50 mg p.o. daily. 7. Rosuvastatin 20 mg p.o. at bedtime. HOSPITAL COURSE: Mrs. Ozuna is a 79-year-old female with past medical history as stated above, who presented to the emergency room with complaints of left flank pain, nausea, and vomiting. The patient went to a [employer] restaurant and she woke up around 2 in the morning with complaints of left-sided flank pain, nausea as well as a headache. This was followed by multiple episodes of vomiting. For more details about her presentation, refer to her history and physical. In the emergency room, the patient had a CT of the abdomen and pelvis that showed diverticulosis without findings of acute diverticulitis, infracecal medially extending appendix measuring up to 0.8 cm, while mildly prominent, it is without visualized inflammatory change, hepatosteatosis. There was a potential mural lesion along the midline anterior wall of the bladder and she will require an ultrasound as outpatient. CT of the chest showed no pulmonary embolism, dissection or aneurysmal dilatation. The patient had minimal EKG changes of the inferior wall and her troponin was minimally elevated at 0.03. She had a transthoracic echocardiogram that showed an ejection fraction of 50% to 55% with normal wall motion. The ascending aorta was mildly dilated at 3.7 cm. The patient underwent a 2-day nuclear stress test that showed no specific evidence for infarct or ischemia, but there was a slightly decreased left ventricular ejection fraction which is new when compared to her prior study, so the risk assessment was deemed intermediate. The patient was seen in consultation by Cardiology (Dr. Wilhelm) and her impression was the patient's troponins were low and stable with possible cross reaction, no inducible ischemia on nuclear study and normal ejection fraction and wall motion on an echo. She said that the patient was medically stable for discharge and that she will need further risk factor control, especially her blood pressure. The patient's blood pressure in the hospital is around 140/80s and she may need further evaluation to adjust her regimen. Dr. Wilhelm also recommended continued management of the other risk factors including her lipids , diabetes and also lifestyle. She also recommended considering exercise stress test in the future as the patient had a chemical stress test in the hospital with imaging if any anginal symptoms recur. She also recommended the patient follow up with her PCP and have a followup echocardiogram in 3 to 6 months to assure that her ejection fraction remains stable. If the PCP deemed necessary, the patient can then follow up with Dr. Wilhelm. I believe the symptoms that prompted her visit to the ED were likely secondary to gastroenteritis. On the day of discharge, she had had resolution of her left flank pain, nausea, and vomiting. She was able to tolerate diet. Her headache also resolved after she was able to drink coffee again. The patient is medically stable to be discharged home today to follow up with Dr. Holly as outpatient. PHYSICAL EXAMINATION: Vital Signs: Temperature 98.2, heart rate is 66, respiratory rate is 20, oxygen saturation is 95% on room air, blood pressure is 150/66. General: The patient is a pleasant elderly lady, sitting up in bed in no acute distress. CVS: Normal S1, S2. Regular rate and rhythm. Chest: Breath sounds noted. No added sounds. Abdomen is obese, soft, bowel sounds present. Neuro: She is alert and oriented x3, able to move all 4 extremities. DIET: Heart healthy consistent carb diet. ACTIVITIES: As tolerated. DISPOSITION: To home. STATUS WHILE IN THE HOSPITAL: Observation. CONDITION ON DISCHARGE: Fair. Please keep in mind that this is a summarized version of this patient's hospital stay. If you need more information, please feel free to call me at or please obtain full medical records. TIME SPENT: Approximately 45 minutes was spent to complete this discharge. [id number]/CPS #: [id number] MAREK
== END 2019-07-12 17:49 | disposition home or self-care (01) ==
LOC: ED 09:38 → MEDTELE 17:39
PROVIDERS: ADMIT Internal Medicine; ATTEND Internal Medicine
DX: R10.84 Generalized abdominal pain (principal); R11.2 Nausea with vomiting, unspecified; R07.9 Chest pain, unspecified; N32.9 Bladder disorder, unspecified; I10 Essential (primary) hypertension; E78.5 Hyperlipidemia, unspecified; E11.9 Type 2 diabetes mellitus without complications; Z79.4 Long term (current) use of insulin; Z79.82 Long term (current) use of aspirin; Z79.899 Other long term (current) drug therapy; I42.9 Cardiomyopathy, unspecified; R51 Headache; R94.31 Abnormal electrocardiogram [ECG] [EKG]; Z23 Encounter for immunization
CPT/HCPCS: 36415; 71275; 74177; 78452; 80048; 80053; 80061; 81003; 81015; 83036; 83605; 83690; 84484; 85025; 85379; 86140; 87077; 87086; 90471; 90686; 93005; 93017; 93306; 96361; 96372; 96374; 96375; 96376; 99284; A9270-GY; A9502; G0008; G0378; J0280; J0360; J1650; J2270; J2405; J2785; Q9967